=== PATIENT | male | born 1995 | race American Indian/Alaskan Native ===

== ENCOUNTER 2017-10-29 05:37 | Emergency (ER) | payer OTHER ==
[2017-10-29 05:58] VITALS: BP 135/79
--- NOTE | 2017-10-29 06:46 | Emergency Department Report ---
ED Male HPI - General Chief complaint: Urogenital-Male Stated complaint: STD Time Seen by Provider: 10/29/17 06:17 Source: patient Mode of arrival: Ambulatory Limitations: No Limitations - Related Data Previous Rx's Medication Instructions Recorded Last Taken Type Bacitracin Zinc Oint [Antibiotic 1 applicatio TP BID #1 tube 10/29/17 Unknown Rx Oint] Ibuprofen [Motrin] 600 mg PO Q8H PRN #30 tablet 10/29/17 Unknown Rx Valacyclovir HCl [Valtrex] 1,000 mg PO BID #20 tablet 10/29/17 Unknown Rx Allergies Allergy/AdvReac Type Severity Reaction Status Date / Time No Known Allergies Allergy Unverified 10/29/17 05:58 ED Review of Systems ROS: Stated complaint: STD Other details as noted in HPI ED Past Medical Hx - Past Medical History Previous Medical History?: No - Surgical History Past Surgical History?: No - Social History Smoking Status: Never Smoker Substance Use Type: Marijuana - Medications Home Medications: Home Medications Medication Instructions Recorded Confirmed Last Taken Type Bacitracin Zinc Oint [Antibiotic 1 applicatio TP BID #1 tube 10/29/17 Unknown Rx Oint] Ibuprofen [Motrin] 600 mg PO Q8H PRN #30 tablet 10/29/17 Unknown Rx Valacyclovir HCl [Valtrex] 1,000 mg PO BID #20 tablet 10/29/17 Unknown Rx ED Physical Exam - General Limitations: No Limitations ED Course Vital Signs 10/29/17 05:53 Temperature 97.6 F Pulse Rate 66 Respiratory 16 Rate Blood Pressure 135/79 O2 Sat by Pulse 100 Oximetry Critical care attestation.: If time is entered above; I have spent that time in minutes in the direct care of this critically ill patient, excluding procedure time. ED Disposition Clinical Impression: Herpes genitalia Qualifiers: Herpes simplex infection site: penis Qualified Code(s): A60.01 - Herpesviral infection of penis Disposition: DC-01 TO HOME OR SELFCARE Is pt being admited?: No Does the pt Need Aspirin: No Condition: Stable Instructions: Genital Herpes Simplex (ED) Prescriptions: Bacitracin Zinc Oint [Antibiotic Oint] 1 applicatio TP BID #1 tube Ibuprofen [Motrin] 600 mg PO Q8H PRN #30 tablet PRN Reason: Pain Valacyclovir HCl [Valtrex] 1,000 mg PO BID #20 tablet Referrals: [facility] [Outside] - 3-5 Days [facility] [Outside] - 3-5 Days Forms: Accompanied Note, Work/School Release Form(ED) Time of Disposition: 06:47
[2017-10-29 06:47] LABS: Bilirubin,Urine NEG (Negative); Blood,Urine NEG (Negative); Color,Urine Yellow (Yellow); Mucus,Urine FEW /HPF; Nitrite,Urine NEG (Negative); Protein,Urine <15 mg/dL mg/dL (Negative); Urobilinogen,Urine < 2.0 mg/dL (<2.0)
== END 2017-10-29 06:54 | disposition home or self-care (01) ==
LOC: ED 05:37
DX: A60.01 Herpesviral infection of penis (principal); F12.10 Cannabis abuse, uncomplicated
CPT/HCPCS: 81001; 87086; 87591; 99283